=== PATIENT | male | born 1965 | race Caucasian/White ===

== ENCOUNTER 2019-05-07 17:49 | Emergency (ER) | payer SELFPAY ==
[~2019-05-07] VITALS: Ht 162.6 cm; Wt 68.0 kg
[2019-05-07 17:55] VITALS: BP 126/79
--- NOTE | 2019-05-07 17:55 | NUR ---
ED Nurse Note: Patient walked in to ER from home due to animal bite by his own dog. Patient alert and oriented x4 and ambulatory. skin clean and intact but Lt hand bite wound noted without bleeding. calm and cooperative. no acute distress noted at this time.
[2019-05-07] MEDS ORDERED: Tetanus/Diptheria/Pertussis IM ONE (18:15)
[2019-05-07] MEDS ORDERED: AUGMENTIN 875-1 EAC1 ORAL (18:17)
--- NOTE | 2019-05-07 18:40 | NUR ---
ED Nurse Note: dressing applied on Lt hand and animal bite document faxed.
[2019-05-07 18:46] VITALS: BP 108/70
--- NOTE | 2019-05-07 18:47 | NUR ---
ED Nurse Note: Pt cleared by health care Provider for discharge. DC instructions/prescription was given and explained to pt and verbalized understanding of teachings. All medical deviecs such as ID band removed. Pt is AAO x4, ambulatory and left with all personal belongings.
--- NOTE | 2019-05-07 19:00 | Emergency Room Report ---
History of Present Illness General Chief Complaint: Animal Bite Source: Patient Present Illness HPI 54-year-old male made by friend complaining of dog bite to the left wrist 1 to 2 hours ago. Pain is 5/10. No relieving/ aggravating factors Patient was breaking up a fight between two dogs. Was bitten by an [place] bulldog, dog's immunizations are up-to-date. Patient's last tetanus shot unknown. Allergies: Coded Allergies: No Known Allergies (Unverified , 05/07/19) Patient History Past Medical History: none Past Surgical History: none Social History: Denies: smoking, alcohol use, drug use Nursing Documentation-[facility] Past Medical History: No Stated History Review of Systems All Other Systems: negative except mentioned in HPI Physical Exam Vital Signs Date Time Temp Pulse Resp B/P (MAP) Pulse Ox O2 Delivery O2 Flow Rate FiO2 05/07/19 17:55 98.3 73 18 126/79 98 Room Air Sp02 EP Interpretation: reviewed, normal Respiratory: chest non-tender, lungs clear, normal breath sounds, speaking full sentences Cardiovascular #1: regular rate, rhythm, no edema Skin: other - four small lacerations about 1cm each on dorsum of left wrist, one 7mm laceration on volar aspect of left wrist. Edges easily approximatable. No active bleeding. Procedures Laceration/Wound Repair Laceration/Wound Repair : Consent: Verbal Wound Location: other - left wrist Wound's Depth, Shape: superficial Wound Explored: no foreign body removed Irrigated w/ Saline (ccs): 100 Wound Repaired With: Steri-strips Sterile Dressing Applied?: Yes Patient Tolerated: Well Complications: None Medical Decision Making PA Attestation This patient was seen under the direct supervision of Dr. Mcintosh, who directed all aspects of care and diagnostic interpretation. Reaction to Intervention: No change Diagnostic Impression: Primary Impression: Bite by animal ER Course ED course HPI: 54-year-old male made by friend complaining of dog bite to the left wrist 1 to 2 hours ago. Pain is 5/10. No relieving/ aggravating factors Patient was breaking up a fight between two dogs. Was bitten by an [place] bulldog, dog's immunizations are up-to-date. Patient's last tetanus shot unknown. Ddx: Animal bite, laceration, cellulitis. HPI & PE consistent with: Animal bite. Orders/ Interventions: Wounds irrigated copiously with normal saline, no foreign body found. Wound edges approximated with Steri-Strips. Tdap vaccine given. [facility] Animal Bite form completed and faxed. Disposition: At this time pt. is stable for d/c to home. Patient discharged with Rx for Augmentin. Will provide printed patient care instructions. Care plan and follow up instructions have been discussed with the patient prior to discharge. Followup in 2 to 3 days for wound check. Or return to ED if worsening symptoms , new symptoms or sudden change in condition. Please note that this Emergency Department Report was dictated using [employer] intermediary technology software, occasionally this can lead to erroneous entry secondary to interpretation by the dictation equipment. Last Vital Signs Date Time Temp Pulse Resp B/P (MAP) Pulse Ox O2 Delivery O2 Flow Rate FiO2 05/07/19 18:46 98.1 74 18 108/70 98 Room Air Status: unchanged Disposition: HOME, SELF-CARE Condition: Stable Scripts Amoxicillin/Potassium Clav 875-125* (AUGMENTIN 875-125 TABLET*) 1 Each Tablet 1 TAB ORAL TWICE A DAY for 7 Days, #14 TAB Prov: Uma Pan 05/07/19 Patient Instructions: Animal Bite Additional Instructions: Followup with PCP in 2 days or return to ER if worsening symptoms, new symptoms or sudden change in condition Uma Pan May 07, 2019 19:00
== END 2019-05-07 18:45 | disposition home or self-care (01) ==
LOC: EMR 18:40
DX: S61.552A Open bite of left wrist, initial encounter (principal); Z23 Encounter for immunization; W54.0XXA Bitten by dog, initial encounter; Y92.9 Unspecified place or not applicable
CPT/HCPCS: 90471; 90715; 99282